=== PATIENT | male | born 1955 | race Caucasian/White ===

== ENCOUNTER 2021-06-09 08:19 | Emergency (ER) | payer MEDICARE ==
[~2021-06-09] VITALS: Ht 175.3 cm; Wt 104.3 kg
[2021-06-09] MEDS ORDERED: VITAMIN D310 MCG PO (08:41)
[2021-06-09] MEDS ORDERED: DESYREL150 MG PO (08:41)
[2021-06-09] MEDS ORDERED: ZINC50 M1 PO (08:42)
[2021-06-09] MEDS ORDERED: IBU800 MG PO (08:42)
[2021-06-09] MEDS ORDERED: CHILDREN'S ASPI81 MG PO (08:42)
[2021-06-09] MEDS ORDERED: VITAMIN C100 MG PO (08:42)
[2021-06-09 09:39] VITALS: BP 178/84
== END 2021-06-09 09:39 | disposition home or self-care (01) ==
LOC: M.ERS 08:19
DX: R05 Cough (principal); Z20.822 Contact with and (suspected) exposure to COVID-19; Z90.49 Acquired absence of other specified parts of digestive tract; Z79.899 Other long term (current) drug therapy